=== PATIENT | female | born 1975 | race Caucasian/White ===

== ENCOUNTER 2021-08-27 12:27 | Emergency (ER) | payer OTHER ==
[~2021-08-27] VITALS: Ht 170.2 cm; Wt 116.0 kg
--- NOTE | 2021-08-27 13:03 | EKG ---
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
--- NOTE | 2021-08-27 13:23 | PHYS DOC ---
General Adult EDM: Chief Complaint: CHEST PAIN HPI: HPI: 46-year-old female presents with chest pain. The patient has been intermittent chest pain for couple of weeks. It is usually a pressure sensation at night worse when she lays down. She presents to emergency room today because she was sitting at her desk at work and felt a pressure. It was a 7 out of 10. It is currently 7 out of 10 lying in the bed. She felt warm but does not think she was sweating. Deep breaths can make the pain worse. She already has an echocardiogram scheduled with cardiology on Thursday in 3 days. Patient has no cardiac history. She is on pantoprazole for GERD. She denies fever or chills. Review of Systems: Review of Systems: Constitutional: Denies fever or chills Eyes: Denies change in visual acuity HENT: Denies nasal congestion or sore throat Respiratory: Denies cough or shortness of breath Cardiovascular: chest pain GI: Denies abdominal pain, nausea, vomiting, bloody stools or diarrhea : Denies dysuria Musculoskeletal: Denies back pain or joint pain Integument: Denies rash Neurologic: Denies headache, focal weakness or sensory changes Endocrine: Denies polyuria or polydipsia Lymphatic: Denies swollen glands Psychiatric: Denies depression or anxiety Allergies: Allergies: Allergies Coded Allergies Type Severity Reaction Last Updated Verified No Known Drug Allergies 08/27/21 No Physical Exam: PE: Constitutional: Well developed, well nourished, obese, no acute distress, non- toxic appearance. [] HENT: Normocephalic, atraumatic, bilateral external ears normal, oropharynx moist, no oral exudates, nose normal. [] Eyes: PERRLA, EOMI, conjunctiva normal, no discharge. [] Neck: Normal range of motion, no tenderness, supple, no stridor. [] Cardiovascular: Heart rate 82, regular rhythm, no murmur [] Lungs & Thorax: Bilateral breath sounds clear to auscultation [] Abdomen: Bowel sounds normal, soft, no tenderness, no masses, no pulsatile masses. [] Skin: Warm, dry, no erythema, no rash. [] Back: No tenderness, no CVA tenderness. [] Extremities: No tenderness, no cyanosis, no clubbing, ROM intact, no edema. [] Neurologic: Alert and oriented X 3, normal motor function, normal sensory function, no focal deficits noted. [] Psychologic: Affect normal, judgement normal, mood anxious. [] EKG: EKG: Sinus rhythm, rate 82, normal axis, no ST elevation or depression. [] Radiology/Procedures: Radiology/Procedures: [] Impressions: INDICATION: Reason: CHEST PAIN / Spl. Instructions: / History: COMPARISON: None. FINDINGS: Single view of chest obtained. Cardiomediastinal silhouette is prominent but likely exaggerated by portable technique. Left lung base is obscured by the overlying cardiac silhouette but didn't d efinite consolidation also in the lungs. IMPRESSION: * No focal airspace consolidation. Electronically signed by: Kartik Tsang MD (08/27/2021 2:09 PM) [id number] DICTATED AND SIGNED BY: KARTIK TSANG MD DATE: 08/27/21 1407 CC: RADHA LUCAS DO; HANS SKELTON MD ~MTH0 0 Heart Score: C/O Chest Pain: Yes HEART Score for Chest Pain: HEART Score for Chest Pain Response (Comments) Value History Moderately Suspicious 1 ECG Normal 0 Age >45 - < 65 1 Risk Factors 1 or 2 Risk Factors 1 Total 3 Risk Factors: Risk Factors: DM, Current or recent (<one month) smoker, HTN, HLP, family history of CAD, obesity. Risk Scores: Score 0 - 3: 2.5% MACE over next 6 weeks - Discharge Home Score 4 - 6: 20.3% MACE over next 6 weeks - Admit for Clinical Observation Score 7 - 10: 72.7% MACE over next 6 weeks - Early Invasive Strategies Course & Med Decision Making: Course & Med Decision Making Pertinent Labs and Imaging studies reviewed. (See chart for details) The patient's EKG is unremarkable. Her labs are unremarkable. Her troponin is negative. Her chest x-ray is negative for acute findings. This does not appear to be cardiopulmonary in nature at this time. I believe that she should keep her appointment for her echocardiogram. I have given her 20 mg of Pepcid to see if this is breakthrough GERD. She is stable for discharge at this time. [] Dragchloe Disclaimer: Dragchloe Disclaimer: This electronic medical record was generated, in whole or in part, using a voice recognition dictation system. Departure Departure: Impression: Primary Impression: Chest pain Disposition: HOME / SELF CARE / HOMELESS Condition: STABLE Referrals: HANS SKELTON MD (PCP) Patient Instructions: Chest Pain (Nonspecific), [id number] RADHA LUCAS DO Aug 27, 2021 13:23
[2021-08-27] MEDS ORDERED: FAMOTIDINE 20 MG/2 ML VIAL IVP ONE (13:30)
[2021-08-27] MEDS ORDERED: ONDANSETRON PF 4 MG/2 ML VIAL. IVP ONE (13:30)
[2021-08-27 13:53] LABS: BASO % 0 % (0-3); EOS # 0.2 x10^3/uL (0.0-0.7); EOS % 4 % (0-3); HEMATOCRIT 37.6 % (36.0-47.0); HEMOGLOBIN 12.4 g/dL (12.0-15.5); LYMPH # 2.8 x10^3/uL (1.0-4.8); LYMPH % 49 % (24-48); MEAN CORPUSCULAR HEMOGLOBIN 27 pg (25-35); MEAN CORPUSCULAR HGB CONC 33 g/dL (31-37); MEAN CORPUSCULAR VOLUME 83 fL (79-100); MONO # 0.5 x10^3/uL (0.0-1.1); MONO % 9 % (0-9); NEUT # 2.2 x10^3uL (1.8-7.7); NEUT % 38 % (31-73); PLATELET COUNT 320 x10^3/uL (140-400); RED BLOOD COUNT 4.55 x10^6/uL (3.50-5.40); RED CELL DISTRIBUTION WIDTH 13.8 % (11.5-14.5); WHITE BLOOD COUNT 5.8 x10^3/uL (4.0-11.0)
--- NOTE | 2021-08-27 14:12 | RAD ---
INDICATION: Reason: CHEST PAIN / Spl. Instructions: / History: COMPARISON: None. FINDINGS: Single view of chest obtained. Cardiomediastinal silhouette is prominent but likely exaggerated by portable technique. Left lung base is obscured by the overlying cardiac silhouette but didn't definite consolidation also in the lungs. IMPRESSION: * No focal airspace consolidation. Electronically signed by: Kartik Tsang MD (08/27/2021 2:09 PM) [id number]
[2021-08-27 14:45] LABS: CALCIUM 8.9 mg/dL (8.5-10.1); CREATININE 0.9 mg/dL (0.6-1.0); GFR 67.1; POTASSIUM 3.9 mmol/L (3.5-5.1)
[2021-08-27 14:51] LABS: ALBUMIN 3.5 g/dL (3.4-5.0); ALBUMIN/GLOBULIN RATIO 0.9 (1.0-1.7); TOTAL BILIRUBIN 0.3 mg/dL (0.2-1.0); TOTAL PROTEIN 7.2 g/dL (6.4-8.2)
[2021-08-27 15:05] VITALS: BP 132/84
== END 2021-08-27 16:12 | disposition home or self-care (01) ==
LOC: ER 12:27
DX: R07.89 Other chest pain (principal)
CPT/HCPCS: 36415; 71045; 80053; 84484; 85025; 93005; 96374; 96375; 99285; J2405; J3490